=== PATIENT | female | born 1960 | race American Indian/Alaskan Native ===

== ENCOUNTER 2020-12-17 11:08 | Observation (INO) | payer BC ==
[2020-12-17] MEDS ORDERED: SODIUM CHLORIDE 0.9% 1000 ML 1,000 ML IV ONE (11:54)
--- NOTE | 2020-12-17 11:57 | XRay Report ---
CHEST 1 VIEW 12/17/2020 10:50 AM INDICATION / CLINICAL INFORMATION: chest pain. COMPARISON: None available. FINDINGS: SUPPORT DEVICES: None. HEART / MEDIASTINUM: No significant abnormality. LUNGS / PLEURA: No significant pulmonary or pleural abnormality. No pneumothorax. ADDITIONAL FINDINGS: No significant additional findings. IMPRESSION: 1. No acute findings. Signer Name: Jah Adan MD Signed: 12/17/2020 11:52 AM Workstation Name: [id number]
[2020-12-17 11:58] LABS: Basophils # (Auto) 0.1 K/mm3 (0.0-0.1); Basophils % (Auto) 1.2 % (0.0-1.8); Eosinophils # (Auto) 0.2 K/mm3 (0.0-0.4); Eosinophils % (Auto) 2.8 % (0.0-4.3); Hematocrit 36.1 % (30.3-42.9); Hemoglobin 12.2 gm/dl (10.1-14.3); Lymphocytes # (Auto) 2.2 K/mm3 (1.2-5.4); Lymphocytes % (Auto) 33.3 % (13.4-35.0); Mean Corpuscular HGB Conc 34 % (30-34); Mean Corpuscular Volume 88 fl (79-97); Monocytes # (Auto) 0.7 K/mm3 (0.0-0.8); Monocytes % (Auto) 10.6 % (0.0-7.3); Platelet Count 309 K/mm3 (140-440); Red Blood Count 4.11 M/mm3 (3.65-5.03); Red Cell Distribution Width 15.3 % (13.2-15.2)
--- NOTE | 2020-12-17 11:58 | Emergency Department Report ---
ED Palpitations HPI - General Chief Complaint: Chest Pain Stated Complaint: CHEST PAIN Time Seen by Provider: 12/17/20 11:38 Source: patient Mode of arrival: Ambulatory Limitations: No Limitations - History of Present Illness Initial Comments: 60-year-old female, history of hypertension, anxiety, presents to the ED with palpitations for over an hour. Patient states she drank a glass of Ensure. She states afterwards she began to feel her heart racing. Patient reports associated tightness along her jaw and left shoulder pain. Patient denies any chest pain, shortness of breath, leg pain or swelling. Patient tested positive for COVID-19 approximately 1 month ago. She reports she was symptomatic for 2 weeks with flulike symptoms, but states symptoms have now completely resolved. Patient had a negative Covid test on 12/01/2020. Patient reports history of heart racing in the past, but states it is usually secondary to her anxiety. States it usually does not last for an hour, like today. Patient denies any caffeine or energy drink intake. MD Complaint: "heart racing" -: hour(s) (1) Context: occured during rest Associated Symptoms: anxiety. denies: chest pain, shortness of breath, nausea/vomiting, cough - Related Data Home Medications Medication Instructions Recorded Confirmed Last Taken Aspirin [Adult Aspirin] 81 mg PO QDAY 12/17/20 12/17/20 Unknown Olmesartan/Hydrochlorothiazide 1 each PO QDAY 12/17/20 12/17/20 Unknown [Olmesartan-Hctz 40-12.5 mg Tab] Rosuvastatin Calcium [Crestor] 10 mg PO QDAY 12/17/20 12/17/20 Unknown amLODIPine [Norvasc] 10 mg PO DAILY 12/17/20 12/17/20 Unknown Allergies Allergy/AdvReac Type Severity Reaction Status Date / Time No Known Allergies Allergy Unverified 12/17/20 11:12 ED Review of Systems ROS: Stated complaint: CHEST PAIN Other details as noted in HPI Comment: All other systems reviewed and negative Constitutional: denies: fever Respiratory: denies: cough, shortness of breath Cardiovascular: palpitations. denies: chest pain, edema Gastrointestinal: denies: nausea, vomiting Musculoskeletal: other (Denies leg pain or swelling) ED Past Medical Hx - Past Medical History Previous Medical History?: Yes Hx Hypertension: Yes Hx Congestive Heart Failure: Yes - Social History Smoking Status: Never Smoker Substance Use Type: None - Medications Home Medications: Home Medications Medication Instructions Recorded Confirmed Last Taken Type Aspirin [Adult Aspirin] 81 mg PO QDAY 12/17/20 12/17/20 Unknown History Olmesartan/Hydrochlorothiazide 1 each PO QDAY 12/17/20 12/17/20 Unknown History [Olmesartan-Hctz 40-12.5 mg Tab] Rosuvastatin Calcium [Crestor] 10 mg PO QDAY 12/17/20 12/17/20 Unknown History amLODIPine [Norvasc] 10 mg PO DAILY 12/17/20 12/17/20 Unknown History ED Physical Exam - General Limitations: No Limitations General appearance: alert, in no apparent distress - Head Head exam: Present: atraumatic, normocephalic - Eye Eye exam: Present: normal appearance, EOMI - ENT ENT exam: Present: mucous membranes moist - Neck Neck exam: Present: normal inspection - Respiratory Respiratory exam: Present: normal lung sounds bilaterally. Absent: respiratory distress - Cardiovascular Cardiovascular Exam: Present: normal rhythm, tachycardia - GI/Abdominal GI/Abdominal exam: Present: soft. Absent: distended, tenderness - Extremities Exam Extremities exam: Present: normal inspection. Absent: pedal edema, calf tenderness - Neurological Exam Neurological exam: Present: alert, oriented X3 - Psychiatric Psychiatric exam: Present: normal affect, normal mood - Skin Skin exam: Present: warm, dry, intact, normal color ED Course Vital Signs 12/17/20 12/17/20 12/17/20 11:22 11:35 11:46 Temperature 98.4 F Pulse Rate 152 H 153 H 149 H Respiratory 22 Rate Blood Pressure 171/95 148/75 163/87 [Right] O2 Sat by Pulse 99 98 96 Oximetry 12/17/20 12/17/20 12/17/20 12:17 12:55 13:18 Temperature Pulse Rate 144 H 139 H 116 H Respiratory Rate Blood Pressure 168/70 158/85 136/86 [Right] O2 Sat by Pulse 97 98 98 Oximetry 12/17/20 12/17/20 12/17/20 13:32 13:45 14:00 Temperature Pulse Rate 80 141 H 145 H Respiratory Rate Blood Pressure 131/86 148/86 151/96 [Right] O2 Sat by Pulse 99 100 97 Oximetry 12/17/20 12/17/20 12/17/20 14:30 15:00 15:30 Temperature Pulse Rate 64 84 72 Respiratory Rate Blood Pressure 120/56 131/76 129/72 [Right] O2 Sat by Pulse 98 97 97 Oximetry 12/17/20 12/17/20 12/17/20 16:00 16:30 16:58 Temperature Pulse Rate 146 H 117 H 85 Respiratory Rate Blood Pressure 148/86 151/94 120/56 [Right] O2 Sat by Pulse 98 98 99 Oximetry - Reevaluation(s) Reevaluation #1: 12/17/20 12:45 No change in rate or rhythm w/ cardizem. Reevaluation #2: 12/17/20 13:45 HR improved to the 80s following IV metoprolol. Upon obtaining repeat EKG, HR had increased again. This time EKG reads as Aflutter. ED Medical Decision Making - Lab Data Result diagrams: 12/17/20 11:41 12/17/20 11:41 - EKG Data -: EKG Interpreted by De EKG shows normal: intervals, QRS complexes, ST-T waves Rate: tachycardia - EKG Data Interpretation: no acute changes - Radiology Data Radiology results: report reviewed, image reviewed - Medical Decision Making 60-year-old female presents to ED with palpitations. Heart rate around the 150s. No change in rate with IV fluids. Cardizem 10 mg x 2 doses was given to see of tachycardia possibly due to a flutter, however no change in rate or rhythm with Cardizem. Patient was then given metoprolol 5 mg, which did slow her heart rate down into the 80s and revealed flutter waves. Patient has been seen by cardiology for this new onset atrial flutter. Rate is now controlled. CTA was negative for any acute findings including PE. Patient will be admitted by hospitalist, Dr. Davis, for further management. - Differential Diagnosis Arrhythmia, anxiety, PE Critical Care Time: Yes Critical care time in (mins) excluding proc time.: 35 Critical care attestation.: If time is entered above; I have spent that time in minutes in the direct care of this critically ill patient, excluding procedure time. Critical Care Time: 35 min ED Disposition Clinical Impression: Atrial flutter with rapid ventricular response, Hypokalemia, New onset atrial flutter Disposition: OP ADMIT IP TO THIS HOSP Is pt being admited?: Yes Condition: Stable Time of Disposition: 15:39
[2020-12-17] MEDS ORDERED: dilTIAZem 25 MG/5 ML INJ IV ONE ×2 (12:25→12:45)
[2020-12-17 12:31] LABS: Alanine Aminotransferase 19 units/L (7-56); Albumin 4.4 g/dL (3.9-5); BUN/Creatinine Ratio 17; Blood Urea Nitrogen 15 mg/dL (7-17); Calcium 10.4 mg/dL (8.4-10.2); Hemolysis Index 13
[2020-12-17] MEDS ORDERED: POTASSIUM CHLORIDE ER 20 MEQ TAB PO ONE (12:43)
[2020-12-17] MEDS ORDERED: METOPROLOL TARTRATE 5 MG/5 ML INJ IV ONE ×2 (13:03→13:57)
[2020-12-17 13:14] LABS: INR 0.88 (0.87-1.13)
[2020-12-17 13:15] LABS: Partial Thromboplastin Time 28.6 Sec. (24.2-36.6)
[2020-12-17 13:34] LABS: Free T4 (Free Thyroxine) 1.18 ng/dL (0.76-1.46)
--- NOTE | 2020-12-17 14:54 | Consultation ---
History of Present Illness Consult date: 12/17/20 Requesting physician: HUDSON HORTON Consult reason: atrial fibrillation (Atrial Flutter) History of present illness: Patient is a 60 year old Female with a significant hx of reported nonobstructive CAD, HTN, "heart murmur", Covid+ on 11/18/2020, hx parathyroidectomy. She is previously unknown to our practice. Pt has been followed by [facility] in the past. Pt presented with c/o intermittent palpitations which began in October with Covid sx, worse this AM. Pt states early this AM while watering her plants, pt began experiencing palpitations and sought treatment through [facility]. Pt was initially found to be in Atrial Flutter with a HR 150s. She was given IV cardizem with no response in HR. She was subsequently given 5mg IV Lopressor x2 with transient reduction in HR to 80s. Admission SBP 170s. Cardiology was consulted for new onset Atrial Flutter with RVR. She reports [facility] in 2015 with 45% "R side" obstruction. 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 She does report being on several medications at homewhich include Benicar, Amlodipine, ASA, Crestor and denies missing any doses. Past History Past Medical History: hypertension, hyperlipidemia, other (Covid+ 11/18/2020). denies: diabetes, DVT, liver disease, pulmonary embolism, renal failure, seizures, stroke Past Surgical History: Other (Parathyroidectomy) Medications and Allergies Allergies Allergy/AdvReac Type Severity Reaction Status Date / Time No Known Allergies Allergy Unverified 12/17/20 11:12 Review of Systems Constitutional: no weight loss, no weight gain, no fever, no chills, no sweats Ears, nose, mouth and throat: no ear pain, no ear discharge, no tinnitis, no nose pain, no nasal congestion, no nasal discharge, no sinus pressure Cardiovascular: palpitations, rapid/irregular heart beat, no chest pain, no syncope, no lightheadedness, no shortness of breath, no dyspnea on exertion, no leg edema Respiratory: no cough, no shortness of breath, no dyspnea on exertion Gastrointestinal: no abdominal pain, no nausea, no vomiting, no diarrhea, no constipation Genitourinary Female: no pelvic pain, no flank pain Musculoskeletal: no neck stiffness, no neck pain, no shooting arm pain, no arm numbness/tingling, no low back pain, no shooting leg pain, no leg numbness/tingling Integumentary: no rash, no pruritis, no redness, no sores, no wounds, no jaundice Neurological: no head injury, no transient paralysis, no paralysis, no weakness, no parathesias, no numbness, no tingling, no seizures, no syncope Psychiatric: no anxiety Endocrine: no cold intolerance, no heat intolerance Hematologic/Lymphatic: no easy bruising, no easy bleeding Allergic/Immunologic: no urticaria Physical Examination Last Vital Signs Temp 98.4 F 12/17/20 11:22 Pulse 64 12/17/20 14:30 Resp 22 12/17/20 11:22 BP 120/56 12/17/20 14:30 Pulse Ox 98 12/17/20 14:30 General appearance: no acute distress HEENT: Positive: PERRL Neck: Positive: neck supple, trachea midline Cardiac: Positive: irregularly irregular, S1/S2 Lungs: Positive: clear to auscultation, Normal Breath Sounds, No Wheeze, Rales, Rhonchi Neuro: Positive: Grossly Intact Abdomen: Positive: Unremarkable Skin: Negative: Rash, Wound Musculoskeletal: No Pain Extremities: Present: upper extr. pulses, lower extr. pulses. Absent: edema Results 12/17/20 11:41 12/17/20 11:41 Cardiac Enzymes 12/17/20 Range/Units 11:41 AST 18 (5-40) units/L Coagulation 12/17/20 Range/Units 12:43 PT 11.7 L (12.2-14.9) Sec. INR 0.88 (0.87-1.13) APTT 28.6 (24.2-36.6) Sec. CBC 12/17/20 Range/Units 11:41 WBC 6.7 (4.5-11.0) K/mm3 RBC 4.11 (3.65-5.03) M/mm3 Hgb 12.2 (10.1-14.3) gm/dl Hct 36.1 (30.3-42.9) % Plt Count 309 (140-440) K/mm3 Lymph # (Auto) 2.2 (1.2-5.4) K/mm3 [place] # (Auto) 0.7 (0.0-0.8) K/mm3 Eos # (Auto) 0.2 (0.0-0.4) K/mm3 Baso # (Auto) 0.1 (0.0-0.1) K/mm3 Comprehensive Metabolic Panel 12/17/20 Range/Units 11:41 Sodium 139 (137-145) mmol/L Potassium 3.1 L (3.6-5.0) mmol/L Chloride 100.9 (98-107) mmol/L Carbon Dioxide 27 (22-30) mmol/L BUN 15 (7-17) mg/dL Creatinine 0.9 (0.6-1.2) mg/dL Glucose 122 H (65-100) mg/dL Calcium 10.4 H (8.4-10.2) mg/dL AST 18 (5-40) units/L ALT 19 (7-56) units/L Alkaline Phosphatase 72 (35-129) units/L Total Protein 7.8 (6.3-8.2) g/dL Albumin 4.4 (3.9-5) g/dL - Imaging and Cardiology Echo: pending EKG: report reviewed, image reviewed EKG interpretations - Telemetry EKG Rhythm: Atrial Flutter - EKG Supraventricular dysrhythmia: atrial flutter Assessment and Plan Cardiology consulted for apparent new onset atrial flutter with RVR- Pt reports intermittent palpitations since having Covid in October 2020. Optimize HR: initiate Lopressor 50mg PO BID. Initiate full dose Lovenox BID in setting of Aflutter and consider conversion to OAC prior to discharge. TTE pending. Will attempt to chemically optimize HR overnight. If unable to optimize/convert HR overnight, will plan for FREDA guided DCCV in AM. Indications, potential risk and benefits of FREDA guided DCCV reviewed with pt and she is agreeable to proceed. NPO after midnight. D dimer is noted to be minimally elevated-Chest CTA is negative for PE. Will follow. This patient was seen in conjunction with Dr Andrew, who agrees with this assessment and plan of care. - Patient Problems (1) Atrial flutter with rapid ventricular response Status: Acute Plan to address problem: Apparent new onset (2) Nonobstructive atherosclerosis of coronary artery Status: Chronic (3) Hypokalemia Status: Acute (4) HTN (hypertension) Status: Chronic (5) HLD (hyperlipidemia) Status: Chronic (6) Anxiety Status: Chronic
[2020-12-17] MEDS ORDERED: ASPIRIN 81 MG TAB CHEW PO NR (15:10)
--- NOTE | 2020-12-17 15:26 | Cat Scan Report ---
CTA chest with contrast INDICATION : MAIN. Acute tachycardia and elevated d-dimer TECHNIQUE: Axial imaging performed through the chest, with contrast bolus timing set to maximize opa cification of the pulmonary arteries. 3-plane MIP reformatted images were obtained. All CT scans at this location are performed using CT dose reduction for ALARA by means of automated exposure control. 100 mL of intravenous contrast administered. COMPARISON: Chest x-ray from today FINDINGS: Bolus: Contrast bolus timing is adequate. PTE: No filling defect is present to suggest PTE. Mediastinum: Heart and great vessels appear normal. No pathologic mediastinal adenopathy. Lungs: A tiny cyst is seen in the right upper lobe and there is also minimal streaky atelectasis in the lingula. The lungs are otherwise clear. Upper abdomen: Limited imaging of the upper abdomen shows nothing acute. Bones: Degenerative changes in the spine with nothing acute. IMPRESSION: Negative for PTE. Clear lungs. Signer Name: Domenico Antunez MD Signed: 12/17/2020 3:22 PM Workstation Name: [id number]
[2020-12-17] MEDS: ENOXAPARIN 100 MG/1 ML INJ SUB-Q SCH ×2 (16:28→21:05)
[2020-12-17] MEDS: METOPROLOL TARTRATE 50 MG TAB PO SCH ×2 (19:22→21:01)
--- NOTE | 2020-12-17 19:24 | History and Physical Report ---
History of Present Illness Date of examination: 12/17/20 Date of admission: 12/17/20 15:40 Chief complaint: Palpitations since a.m. History of present illness: 60-year-old female with history of hypertension, hyperlipidemia and nonobstructive coronary artery disease comes in for palpitations since a.m. Patient has history of coronary artery disease and had a cardiac cath in 2015 at [facility] which showed 40% occlusion of the one of the main coronary arteries. Patient's blood pressure has been controlled. Patient has been having intermittent palpitations for the last few days which she controls with medication trying to keep calm. Today the palpitations have been persistent. Also slight shortness of breath. No chest pain. Patient was tested positive fo r coronavirus on 11/18/2020 and is asymptomatic now. Patient had a negative Covid test on 12/01/2020. Patient has anxiety which he tries to control with meditation but not done any medications. No fever or chills. No recent exposure to coronavirus after December 01. No orthopnea. - Past Medical History Previous Medical History?: Yes --Hypertension: Yes --Congestive Heart Failure: Yes -Surgical history cardiac cath in 2016 - Social History Smoking Status: Never Smoker Substance Use Type: None Family history hypertension - Medications Home Medications: Home Medications Medication Instructions Recorded Confirmed Last Taken Type Aspirin [Adult Aspirin] 81 mg PO QDAY 12/17/20 12/17/20 Unknown History Olmesartan/Hydrochlorothiazide 1 each PO QDAY 12/17/20 12/17/20 Unknown History [Olmesartan-Hctz 40-12.5 mg Tab] Rosuvastatin Calcium [Crestor] 10 mg PO QDAY 12/17/20 12/17/20 Unknown History amLODIPine [Norvasc] 10 mg PO DAILY 12/17/20 12/17/20 Unknown History Review of Systems ROS: Constitutional no weight loss or weight gain no fever or chills HEENT no sore throat no post nasal drip no diplopia Neck no neck stiffness no lymph gland enlargement Chest and lungs no shortness of breath cough or wheezing CVS palpitations since a.m., palpitations since couple of months intermittently GI no nausea no vomiting no diarrhea Genitourinary system no dysuria no flank pain Musculoskeletal system no muscle pains no 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 denies: diabetes, DVT, liver disease, pulmonary embolism, renal failure, s eizures, stroke Past Surgical History: Other (Parathyroidectomy) Medications and Allergies Allergies Allergy/AdvReac Type Severity Reaction Status Date / Time lisinopril AdvReac Unknown Verified 12/17/20 18:47 Home Medications Medication Instructions Recorded Confirmed Last Taken Type Aspirin [Adult Aspirin] 81 mg PO QDAY 12/17/20 12/17/20 Unknown History Olmesartan/Hydrochlorothiazide 1 each PO QDAY 12/17/20 12/17/20 Unknown History [Olmesartan-Hctz 40-12.5 mg Tab] Rosuvastatin Calcium [Crestor] 10 mg PO QDAY 12/17/20 12/17/20 Unknown History amLODIPine [Norvasc] 10 mg PO DAILY 12/17/20 12/17/20 Unknown History Active Meds: Active Medications Aspirin (Aspirin 81 Mg Tab Chew) 81 mg PO DAILY DANIEL Atorvastatin Calcium (Atorvastatin 40 Mg Tab) 40 mg PO QHS DANIEL Enoxaparin Sodium (Enoxaparin 100 Mg/1 Ml Inj) 90 mg 1 mg/kg (90 mg) SUB-Q Q 12HR [facility]; Protocol Last Admin: 12/17/20 16:28 Dose: 90 mg Documented by: Metoprolol Tartrate (Metoprolol Tartrate 50 Mg Tab) 50 mg PO BID [facility] Exam - Constitutional Vitals: Temp Pulse Resp BP Pulse Ox 98.4 F 75 22 125/71 98 12/17/20 11:22 12/17/20 18:15 12/17/20 11:22 12/17/20 18:15 12/17/20 18:15 General appearance: Present: mild distress, well-nourished - EENT Eyes: Present: PERRL ENT: hearing intact, clear oral mucosa - Neck Neck: Present: supple, normal ROM - Respiratory Respiratory effort: normal Respiratory: bilateral: CTA - Cardiovascular Heart rate: 160 Rhythm: regular Heart Sounds: Present: S1 & S2. Absent: rub, click - Extremities Extremities: pulses symmetrical, No edema Peripheral Pulses: within normal limits - Abdominal General gastrointestinal: Present: soft, non-tender, non-distended, normal bowel sounds Female genitourinary: Present: normal - Rectal Rectal Exam: deferred - Integumentary Integumentary: Present: clear, warm, dry - Musculoskeletal Musculoskeletal: gait normal, strength equal bilaterally - Psychiatric Psychiatric: appropriate mood/affect, intact judgment & insight - Neurologic Neurologic: CNII-XII intact, moves all extremities - Allied Health Allied health notes reviewed: nursing, case management HEART Score - HEART Score History: Moderately suspicious EKG: Non-specific Age: 45-65 Risk factors: 1-2 risk factors Troponin: Troponin T < 0.010 ng/mL (0.00-0.029) 12/17/20 14:56 Troponin: < normal limit HEART Score: 4 - Critical Actions Critical Actions: 4-6 pts:12-16.6% risk of adverse cardiac event. Should be admitted Results - Labs CBC & Chem 7: 12/17/20 11:41 12/17/20 11:41 Labs: Laboratory Last Values WBC 6.7 K/mm3 (4.5-11.0) 12/17/20 11:41 RBC 4.11 M/mm3 (3.65-5.03) 12/17/20 11:41 Hgb 12.2 gm/dl (10.1-14.3) 12/17/20 11:41 Hct 36.1 % (30.3-42.9) 12/17/20 11:41 MCV 88 fl (79-97) 12/17/20 11:41 MCH 30 pg (28-32) 12/17/20 11:41 MCHC 34 % (30-34) 12/17/20 11:41 RDW 15.3 % (13.2-15.2) H 12/17/20 11:41 Plt Count 309 K/mm3 (140-440) 12/17/20 11:41 Lymph % (Auto) 33.3 % (13.4-35.0) 12/17/20 11:41 [place] % (Auto) 10.6 % (0.0-7.3) H 12/17/20 11:41 Eos % (Auto) 2.8 % (0.0-4.3) 12/17/20 11:41 Baso % (Auto) 1.2 % (0.0-1.8) 12/17/20 11:41 Lymph # (Auto) 2.2 K/mm3 (1.2-5.4) 12/17/20 11:41 [place] # (Auto) 0.7 K/mm3 (0.0-0.8) 12/17/20 11:41 Eos # (Auto) 0.2 K/mm3 (0.0-0.4) 12/17/20 11:41 Baso # (Auto) 0.1 K/mm3 (0.0-0.1) 12/17/20 11:41 Seg Neutrophils % 52.1 % (40.0-70.0) 12/17/20 11:41 Seg Neutrophils # 3.5 K/mm3 (1.8-7.7) 12/17/20 11:41 PT 11.7 Sec. (12.2-14.9) L 12/17/20 12:43 INR 0.88 (0.87-1.13) 12/17/20 12:43 APTT 28.6 Sec. (24.2-36.6) 12/17/20 12:43 D-Dimer 336.47 ng/mlDDU (0-234) H 12/17/20 12:43 Sodium 139 mmol/L (137-145) 12/17/20 11:41 Potassium 3.1 mmol/L (3.6-5.0) L 12/17/20 11:41 Chloride 100.9 mmol/L (98-107) 12/17/20 11:41 Carbon Dioxide 27 mmol/L (22-30) 12/17/20 11:41 Anion Gap 14 mmol/L 12/17/20 11:41 BUN 15 mg/dL (7-17) 12/17/20 11:41 Creatinine 0.9 mg/dL (0.6-1.2) 12/17/20 11:41 Estimated GFR > 60 ml/min 12/17/20 11:41 BUN/Creatinine Ratio 17 % 12/17/20 11:41 Glucose 122 mg/dL (65-100) H 12/17/20 11:41 Calcium 10.4 mg/dL (8.4-10.2) H 12/17/20 11:41 Magnesium 1.90 mg/dL (1.7-2.3) 12/17/20 12:53 Total Bilirubin 0.30 mg/dL (0.1-1.2) 12/17/20 11:41 AST 18 units/L (5-40) 12/17/20 11:41 ALT 19 units/L (7-56) 12/17/20 11:41 Alkaline Phosphatase 72 units/L (35-129) 12/17/20 11:41 Troponin T < 0.010 ng/mL (0.00-0.029) 12/17/20 14:56 NT-Pro-B Natriuret Pep 28.50 pg/mL (0-900) 12/17/20 11:41 Total Protein 7.8 g/dL (6.3-8.2) 12/17/20 11:41 Albumin 4.4 g/dL (3.9-5) 12/17/20 11:41 Albumin/Globulin Ratio 1.3 % 12/17/20 11:41 TSH 1.980 mlU/mL (0.270-4.200) 12/17/20 12:43 Free T4 1.18 ng/dL (0.76-1.46) 12/17/20 12:43 Assessment and Plan Advance Directives: Yes (Full code) VTE prophylaxis?: Chemical Plan of care discussed with patient/family: Yes - Patient Problems (1) Atrial fibrillation with RVR Current Visit: Yes Status: Acute Plan to address problem: new onset IV Diltiazem gicen in ED IV Lopressor given in Ed Oral Metopropl and oral Diltiazem to continue Discontinue Amlodipine Echo in AM Cardiology consult appreciated (2) Anxiety Current Visit: No Status: Chronic Plan to address problem: On Xanax prn (3) HLD (hyperlipidemia) Current Visit: No Status: Chronic Qualifiers: Hyperlipidemia type: mixed hyperlipidemia Qualified Code(s): E78.2 - Mixed hyperlipidemia Plan to address problem: Cont statins (4) HTN (hypertension) Current Visit: No Status: Chronic Qualifiers: Hypertension type: essential hypertension Qualified Code(s): I10 - Essential (primary) hypertension Plan to address problem: Cont Olmesartan and adjust meds as necessary (5) Hyperparathyroidism Current Visit: No Status: Chronic Plan to address problem: Check pTH (6) DVT prophylaxis Current Visit: Yes Status: Acute Plan to address problem: on Heparin and GI prophylaxis
[2020-12-17] MEDS ORDERED: METOPROLOL TARTRATE 50 MG TAB PO SCH (22:00)
[2020-12-18] MEDS ORDERED: ACETAMINOPHEN 325 MG TAB PO PRN (00:54)
[2020-12-18] MEDS ORDERED: HYDROmorphone 1 MG/1 ML INJ IV PRN (00:54)
[2020-12-18] MEDS ORDERED: oxyCODONE /ACETAMINOPHEN 5-325MG TAB PO PRN (00:54)
[2020-12-18] MEDS ORDERED: ONDANSETRON 4 MG/2 ML INJ IV PRN (00:54)
[2020-12-18] MEDS: dilTIAZem CD 120 MG CAP PO SCH ×2 (03:02→09:56)
[2020-12-18 06:58] LABS: BUN/Creatinine Ratio 12; Blood Urea Nitrogen 12 mg/dL (7-17); Calcium 10.2 mg/dL (8.4-10.2); Hemolysis Index 6
[2020-12-18] MEDS ORDERED: SODIUM CHLORIDE 0.9% 1000 ML 1,000 ML ONE (08:10)
[2020-12-18] MEDS ORDERED: propofoL 200 MG/20 ML VIAL IV ONE ×2 (08:23)
--- NOTE | 2020-12-18 08:23 | Anesthesia Day of Surgery ---
Anesthesia Day of Surgery - Day of Surgery Patient Examined: Yes Patient H&P Reviewed: Yes Patient is NPO: Yes
--- NOTE | 2020-12-18 08:28 | Anesthesia Consultation ---
Anesthesia Consult and Med Hx Date of service: 12/18/20 - Airway Anesthetic Teeth Evaluation: Chipped ROM Head & Neck: Adequate Mental/Hyoid Distance: Adequate Mallampati Class: Class I Intubation Access Assessment: Good - Pre-Operative Health Status ASA Pre-Surgery Classification: ASA3 Proposed Anesthetic Plan: General, MAC - Pulmonary Hx Smoking: No SOB: No (Walks a mile. Had COVID last month and doing much better. Negative test 12/01) Hx Pneumonia: Yes (COVID) - Cardiovascular System Hx Hypertension: Yes Hx Heart Attack/AMI: No (Cath 2016-40% occlusion) Hx Cardia Arrhythmia: Yes (A-Flutter. CHF on chart; pt denies) - Central Nervous System Hx Psychiatric Problems: Yes (Anxiety) - Gastrointestinal Hx Gastroesophageal Reflux Disease: No - Endocrine Hx Renal Disease: No Hx Insulin Dependent Diabetes: No Hx Thyroid Disease: No (Had parathyroid surgery) - Hematic Hx Sickle Cell Disease: No - Other Systems Hx Obesity: Yes
[2020-12-18] MEDS ORDERED: SODIUM CHLORIDE 0.9% 1000 ML 1,000 ML IV ONE (08:35)
[2020-12-18] MEDS ORDERED: BENZOCAINE 20% TOP SPRAY 0.5 ML UNIT DOSE MM NR (09:00)
[2020-12-18] MEDS: METOPROLOL TARTRATE 50 MG TAB PO SCH (09:45)
[2020-12-18 09:46] VITALS: BP 118/57
[2020-12-18] MEDS ORDERED: hydroCHLOROthiazide 25 MG TAB PO SCH (10:00)
[2020-12-18] MEDS ORDERED: ASPIRIN EC 81 MG TAB PO SCH (10:00)
[2020-12-18] MEDS ORDERED: NON-FORMULARY EACH (Rosuvastatin Calcium [Crestor] 10 MG Tablet) PO SCH (10:00)
[2020-12-18] MEDS ORDERED: FAMOTIDINE 20 MG TAB PO SCH (10:00)
[2020-12-18] MEDS ORDERED: HEPARIN 5,000 UNIT/1 ML VIAL SUB-Q SCH (10:00)
[2020-12-18] MEDS ORDERED: OLMESARTAN PO SCH (10:00)
[2020-12-18] MEDS ORDERED: hydroCHLOROthiazide 12.5 MG CAP PO SCH (10:00)
[2020-12-18] MEDS ORDERED: HYDROCHLOROTHIAZIDE PO SCH (10:00)
[2020-12-18] MEDS ORDERED: [UNRECOGNIZED DRUG - OTHER] PO SCH (10:00)
[2020-12-18] MEDS ORDERED: amLODIPine 10 MG TAB PO SCH (10:00)
[2020-12-18] MEDS ORDERED: LOSARTAN 50 MG TAB PO SCH (10:00)
[2020-12-18] MEDS ORDERED: ASPIRIN 81 MG TAB CHEW PO SCH (10:00)
--- NOTE | 2020-12-18 10:10 | Progress Note ---
Assessment and Plan tte reviewed - EF 55-60%, trace MR and TR, mild VT. tele reviewed - pt converted from AFlutter RVR to AFib CVR HR 60-70s overnight. FREDA guided DCCV cancelled. Currently stable cardiac status. Pt may discharge from cardiology standpoint. At discharge, recommend continuation of PO lopressor 50mg BID and initiate Eliquis 5mg BID. Can consider FREDA guided DCCV as OP if arrhythmia persists. Plan for 7 day event monitor as OP - our office will mail event monitor to pt BAIRON. Follow up in our [place] office with Dr. Andrew on 01/20/2021 @ 9:00AM. The patient has been seen in conjunction with Dr. Andrew who agrees with the assessment and plan of care. - Patient Problems (1) Atrial fibrillation and flutter Current Visit: Yes Status: Acute Plan to address problem: new onset (2) History of COVID-19 Current Visit: Yes Status: Chronic Plan to address problem: in 10/2020 (3) Nonobstructive atherosclerosis of coronary artery Current Visit: Yes Status: Chronic (4) HTN (hypertension) Current Visit: Yes Status: Chronic Qualifiers: Hypertension type: essential hypertension Qualified Code(s): I10 - Essential (primary) hypertension (5) HLD (hyperlipidemia) Current Visit: Yes Status: Chronic Qualifiers: Hyperlipidemia type: mixed hyperlipidemia Qualified Code(s): E78.2 - Mixed hyperlipidemia (6) Anxiety Current Visit: Yes Status: Chronic Subjective Date of service: 12/18/20 Principal diagnosis: AFlutter/AFib Interval history: pt resting comfortably in bed, feeling better. tele reviewed - converted to AFib with HR 60-70s overnight. Objective Last Vital Signs Temp 99.0 F 12/18/20 04:44 Pulse 68 12/18/20 09:56 Resp 16 12/18/20 04:44 BP 118/57 12/18/20 09:56 Pulse Ox 97 12/18/20 04:44 - Physical Examination General: No Apparent Distress HEENT: Positive: PERRL Neck: Positive: neck supple, trachea midline Cardiac: Positive: irregularly irregular, S1/S2 Lungs: Positive: Decreased Breath Sounds Neuro: Positive: Grossly Intact Abdomen: Positive: Unremarkable Skin: Negative: Rash, Wound Musculoskeletal: No Pain Extremities: Present: upper extr. pulses, lower extr. pulses. Absent: edema - Labs and Meds Cardiac Enzymes 12/17/20 Range/Units 11:41 AST 18 (5-40) units/L Coagulation 12/17/20 Range/Units 12:43 PT 11.7 L (12.2-14.9) Sec. INR 0.88 (0.87-1.13) APTT 28.6 (24.2-36.6) Sec. CBC 12/17/20 Range/Units 11:41 WBC 6.7 (4.5-11.0) K/mm3 RBC 4.11 (3.65-5.03) M/mm3 Hgb 12.2 (10.1-14.3) gm/dl Hct 36.1 (30.3-42.9) % Plt Count 309 (140-440) K/mm3 Lymph # (Auto) 2.2 (1.2-5.4) K/mm3 [place] # (Auto) 0.7 (0.0-0.8) K/mm3 Eos # (Auto) 0.2 (0.0-0.4) K/mm3 Baso # (Auto) 0.1 (0.0-0.1) K/mm3 Comprehensive Metabolic Panel 12/17/20 12/18/20 Range/Units 11:41 05:36 Sodium 139 144 (137-145) mmol/L Potassium 3.1 L 4.3 D (3.6-5.0) mmol/L Chloride 100.9 106.3 (98-107) mmol/L Carbon Dioxide 27 26 (22-30) mmol/L BUN 15 12 (7-17) mg/dL Creatinine 0.9 1.0 (0.6-1.2) mg/dL Glucose 122 H 99 (65-100) mg/dL Calcium 10.4 H 10.2 (8.4-10.2) mg/dL AST 18 (5-40) units/L ALT 19 (7-56) units/L Alkaline Phosphatase 72 (35-129) units/L Total Protein 7.8 (6.3-8.2) g/dL Albumin 4.4 (3.9-5) g/dL - Imaging and Cardiology EKG: report reviewed, image reviewed Echo: report reviewed - Telemetry EKG Rhythm: Atrial Fibrillation
[2020-12-18] MEDS ORDERED: APIXABAN 5 MG TAB PO SCH (11:00)
--- NOTE | 2020-12-18 11:27 | Discharge Summary ---
Providers - Providers Date of Admission: 12/17/20 15:40 Date of discharge: 12/18/20 Attending physician: DERIK GREEN 12/17/20 14:03 Consult to Physician [CONS] Stat Comment: Consulting Provider: IRA ANDREW Physician Instructions: Reason For Exam: tachycardia Hospitalization Condition: Stable Hospital course: 60-year-old female with history of hypertension, hyperlipidemia and nonobstructive coronary artery disease comes in for palpitations since a.m. Patient has history of coronary artery disease and had a cardiac cath in 2016 at [facility] which showed 40% occlusion of the one of the main coronary arteries. Patient's blood pressure has been controlled. Patient has been having intermittent palpitations for the last few days which she controls with medication trying to keep calm. Today the palpitations have been persistent. Also slight shortness of breath. No chest pain. Patient was tested positive for coronavirus on 11/18/2020 and is asymptomatic now. Patient had a negative Covid test on 12/01/2020. Patient has anxiety which he tries to control with meditation but not done any medications. No fever or chills. No recent exp osure to coronavirus after December 01. No orthopnea. In the ER, patient was found to have atrial flutter with rates in the 150s. Patient received Cardizem with no response. Metoprolol IV has some effect. Cardiology is consulted and patient was started on anticoagulation and Lopressor p.o. Plan to have DC cardioversion performed in a.m. Patient's echocardiogram shows normal ejection fraction. DC cardioversion cancelled this AM. As per cardiology, patient will have a follow-up appointment in the office for an event monitor. Plan to consider FREDA guided DC cardioversion as outpatient if arrhythmia persists. Patient will be discharged on anticoagulation-Eliquis and metoprolol. She will also follow-up with cardiology on 01/20/2021 at 9 AM. Discussed with patient and she agrees with management. Disposition: DC-01 TO HOME OR SELFCARE Time spent for discharge: 25 minutes - Discharge Diagnoses (1) Atrial fibrillation and flutter Status: Acute (2) Atrial fibrillation with RVR Status: Acute Core Measure Documentation - Palliative Care Palliative Care/ Comfort Measures: Not Applicable - Core Measures Any of the following diagnoses?: none Exam - Physical Exam Narrative exam: VITAL SIGNS: Reviewed. GENERAL: Awake HEAD: No signs of head trauma. EYES: Pupils are equal. Extraocular motions intact. MOUTH: Oropharynx is normal. NECK: No adenopathy, no JVD. CHEST: Chest with diminished breath sounds bilaterally. No wheezes, rales, or rhonchi. CARDIAC: normal S1 and S2, without murmurs, gallops, or rubs. ABDOMEN: Soft, non tender and non distended. No rebound or guarding, and no masses palpated. Bowel Sounds normal. MUSCULOSKELETAL: No edema NEUROLOGIC EXAM: Alert and oriented x3. No focal neurologic deficits SKIN: No obvious lesions - Constitutional Vitals: Temp Pulse Resp BP Pulse Ox 99.0 F 68 16 118/57 97 12/18/20 04:44 12/18/20 09:56 12/18/20 04:44 12/18/20 09:56 12/18/20 04:44 Plan Additional Instructions: Continue Lopressor 50 mg twice daily. Continue Eliquis 5 mg twice daily. Follow up with Dr. Andrew on 01/20/2021 @ 9:00AM. Follow up with: MD CESAR [Other] - 3-5 Days IRA ANDREW MD [Staff Physician] - 7 Days Prescriptions: Apixaban [Eliquis] 5 mg PO Q12HR #60 tablet Metoprolol [Lopressor TAB] 50 mg PO BID #60 tablet
== END 2020-12-18 13:02 | disposition home or self-care (01) ==
LOC: ED 11:08 → 4A 15:40
PROVIDERS: ADMIT Internal Medicine; ATTEND Internal Medicine
DX: I48.20 Chronic atrial fibrillation, unspecified (principal); I48.92 Unspecified atrial flutter; E87.6 Hypokalemia; I11.0 Hypertensive heart disease with heart failure; I50.9 Heart failure, unspecified; I25.10 Atherosclerotic heart disease of native coronary artery without angina pectoris; F41.9 Anxiety disorder, unspecified; E78.5 Hyperlipidemia, unspecified; E21.3 Hyperparathyroidism, unspecified; Z98.61 Coronary angioplasty status; Z79.82 Long term (current) use of aspirin; Z79.899 Other long term (current) drug therapy
CPT/HCPCS: 36415; 71045; 71275; 80048; 80053; 83036; 83735; 83880; 84439; 84443; 84484; 85025; 85379; 85610; 85730; 93005; 93306; 96361; 96372; 96374; 96375; 96376; 99291; A9270; G0378; J1644; J1650; J2704; J7030; Q9967